=== PATIENT | female | born 1950 | race Caucasian/White ===

== ENCOUNTER → 2017-06-05 | Outpatient (CLI) | payer MEDICARE, OTHER ==
[~2017-06-05] MED LIST: KEFLEX500 M1 PO; LEVOXYL75 MCG PO; LORTAB 5/500 TA1 TA1 PO; NORVASC PO
--- NOTE | ~2017-06-05 | MY11 ---
[facility] A Service of [facility] RADIOLOGY TEXT RESULTS PATIENT: ARIADNE KASPER LOCATION: [facility] : 46 UNIT #: [id number] AGE: [address]: Leida Benites MD SEX: F ORDER DR: [id number] [place] [id number] O MR#: [id number] Acc #: [id number] NAME: ARIADNE KASPER : 1950 SEX: F STUDY DATE/TIME: 06/05/2017 12:11 UNIT: [facility] ROOM: STUDY DESCRIPTION: MY Mammogram Screening Dig [place] Attending Physician: Leida Benites M.D. Referring Physician: Leida Benites M.D. Ordering Physician: Leida Benites M.D. Primary Care Physician: Leida Benites M.D. MEDICAL IMAGING REPORT This report is preliminary unless electronic signature is present. EXAM Digital screening mammogram with CAD INDICATION Routine screening. PROCEDURE Bilateral CC and MLO views obtained on a digital mammography unit after FDA-approved CAD device utilized. COMPARISON 05/31/2016 FINDINGS Scattered fibroglandular density. No dominant mass or suspicious calcification. IMPRESSION Negative screening mammogram, screening interval 1 year suggested. Patients over the age of 40 are entered into a reminder system with target due date for the next mammogram. A result letter will also be sent to the patient. BIRADS: 1 Negative Dictated by... Ishan Levin M.D. THIS IS AN ELECTRONICALLY VERIFIED REPORT [facility] A Service of [facility] RADIOLOGY TEXT RESULTS PATIENT: ARIADNE KASPER LOCATION: [facility] : 46 UNIT #: [id number] AGE: [address]: Leida Benites MD SEX: F ORDER DR: Ishan Levin M.D. at 06/06/2017 7:12 AM EED/gita TD: 06/05/2017 21:46 JOB #: [id number] MEDICAL IMAGING REPORT Page 1 of 1
== END | disposition home or self-care (01) ==
LOC: SMAM 11:35
DX: Z12.31 Encounter for screening mammogram for malignant neoplasm of breast (principal)
CPT/HCPCS: G0202